=== PATIENT | female | born 1945 | race Caucasian/White ===

== ENCOUNTER 2024-05-23 06:01 | Observation (INO) | payer OTHER ==
[2024-05-20 10:55] LABS: Specific Gravity 1.014 (1.005-1.030); Sqamous Epithelial <5 /HPF (None Seen); Urine Bacteria None Seen /HPF (<20); Urine Bilirubin NEGATIVE (Negative); Urine Blood Negative (Negative); Urine Clarity Turbid (Clear); Urine Color Light-Yellow (Yellow); Urine Culture Reflex Order NOT NEEDED; Urine Glucose NEGATIVE (Negative); Urine Ketones NEGATIVE (Negative); Urine Microscopic Reflex YN ORDER UMIC; Urine Nitrite NEGATIVE (Negative); Urine Protein NEGATIVE (Negative); Urine RBC <5 /HPF (None Seen); Urine Urobilinogen Normal (Normal); Urine WBC <5 /HPF (<5)
[2024-05-20 11:05] LABS: PT Prothrombin Time 11.9 SECONDS (9.4-12.5); PTT, Activated Partial Thromb 31.9 SECONDS (24.3-36.9); Protime INR 1.06
[2024-05-20 11:07] LABS: Absolute Basophils 0.1 K/uL (0-0.5); Absolute Eosinophils 0.1 K/uL (0-0.5); Absolute Lymphocytes (CBC) 2.4 K/uL (0.7-4.9); Absolute Monocytes 0.8 K/uL (0.1-1.3); Absolute Neutrophil 4.5 K/uL (1.8-8.0); Basophils % 0.7 % (0-1.3); Eosinophils % 1.1 % (0-4.4); Hematocrit 41.8 % (36.0-45.0); Lymphocytes % 31.2 % (15.3-44.8); MCH 32.8 pg (27.0-35.0); MCHC 33.6 g/dL (32.0-36.0); MCV 97.7 fL (80-100); MPV 9.2 fL (7.6-11.3); Monocytes % 9.7 % (3.3-12.3); Neutrophils % 57.3 % (41.7-73.7); Nucleated Red Blood Cells % 0.1 % (0-0); Platelets 270 thou/uL (152-406); RBC Red Blood Cell Count 4.28 M/uL (3.86-4.86); Red Cell Distribution Width 12.8 % (12.1-15.2)
--- NOTE | 2024-05-20 16:57 | EKG ---
Test Date: 2024-05-20 Test Time: 09:59:36 Coding Analyst: PREO MEASUREMENT RESULTS: Intervals: Rate: 76 ID: [id number] QRSD: 78 QT: 372 QTc: 418 [place]: P: 39 ID: [id number] QRS: 51 T: 47 INTERPRETIVE STATEMENTS: Normal sinus rhythm Normal ECG No previous ECG available for comparison Electronically Signed On 05-20-24 16:56:33 CDT by Thaddeus Escoto
[2024-05-23] MEDS: CEFAZOLIN SODIUM 2 GM/VIAL ONE (06:12)
[2024-05-23] MEDS: Ringers Lactate 1,000 ML IV ONE ×2 (06:13→08:43)
[2024-05-23] MEDS: SCOPOLAMINE HYDROBROMIDE PATCH TD ONE ×2 (06:13→06:31)
[2024-05-23] MEDS: LIDOCAINE HCL/EPINEPHRINE 20 ML MDV ONE (06:21)
[2024-05-23] MEDS: CEFAZOLIN SODIUM 1 GM/VIAL ONE (06:21)
[2024-05-23] MEDS: VASOPRESSIN 20 UNIT/ML VIAL ONE (06:22)
[2024-05-23] MEDS: NA CHLORIDE 0.9% 100 ML ONE (06:22)
[2024-05-23] MEDS ORDERED: ONDANSETRON 4 MG/2 ML VIAL ONE (06:41)
[2024-05-23] MEDS ORDERED: FENTANYL CITR 250 MCG/5 ML ONE (06:41)
[2024-05-23] MEDS ORDERED: LIDOCAINE 1% MPF 5 ML VIAL ONE (06:41)
[2024-05-23] MEDS ORDERED: propofoL 200 MG/20 ML VIAL IV ONE (06:41)
[2024-05-23] MEDS ORDERED: dexAMETHasone 10 MG/ML VIAL ONE (06:41)
[2024-05-23] MEDS ORDERED: ROCURONIUM 50 MG/5 ML VIAL IV ONE (06:41)
[2024-05-23] MEDS: VASOPRESSIN 20 UNIT/ML VIAL IM ONE (08:15)
[2024-05-23] MEDS ORDERED: GLYCOPYRROLATE 0.2 MG/ML SYR ONE (08:50)
[2024-05-23] MEDS: HYDROMORPHONE HCL 1 MG/ML INJ ONE (10:33)
[2024-05-23] MEDS: HYDROMORPHONE HCL 1 MG/ML INJ IV ONE ×2 (10:35→11:15)
[2024-05-23] MEDS ORDERED: PROMETHAZINE INJ 25 MG/ML AMP IV PRN (11:25)
[2024-05-23 11:43] VITALS: O2SAT 98
[2024-05-23 12:24] VITALS: BMI 35.1
[2024-05-23] MEDS: CEFAZOLIN 1 GM in NA CHLORIDE 0.9% 50 ML IVPB SCH (16:52)
[2024-05-23] MEDS: ACETAMINOPHEN 500 MG TAB PO PRN (18:37)
--- NOTE | 2024-05-23 20:26 | OP ---
Date of Procedure: 05/23/2024 Surgeon: Thea Shaw MD Senior Business Intelligence Analyst: Jada Fair. Preoperative Diagnoses: Stage 3 incomplete uterovaginal prolapse, anterior wall prolapse, posterior wall defect, stress urinary incontinence. Postoperative Diagnoses: Stage 3 uterine prolapse, stage II anterior wall prolapse, posterior wall d efect (rectocele), posterior enterocele, perineocele, stress urinary incontinence. Procedures Performed: 1.Anterior repair with biologic graft augmentation. 2.Anterior approach bilateral sacrospinous ligament fixation, cervical colpopexy. 3.Posterior wall repair with posterior enterocele repair and perineocele repair. 4.Then, transobturator mid urethral sling (TVT-O) cystoscopy. Estimated Blood Loss: 100. Specimens: No specimens. Complications: No complications. Drains: Bansal catheter and vaginal packing. Condition: Stable. Findings: POP-Q 0, +2, +1, 5, then 9.5, -2, -2, -2. Cystoscopy showed strong ureteric jets from bot h ureteric orifices. No evidence of any trauma or foreign body in the bladder. On careful examinati on of the sides as well as urethra. Procedure In Detail: After informed consent was verified, patient was taken back to OR, placed in a supine fashion on the operating table, general anesthesia was given. Consent was re-verified in the preoperative area with her and sister before she was taken back and questions and answers wer e completed to her satisfaction. She was placed in a dorsal lithotomy position and vulva, vagina, and perineum, lower abdomen, the med ial thighs were all prepped with Betadine, draped in a sterile fashion. Bansal was placed to drain th e bladder. A self-retaining retractor was fixed in place and Bansal was clamped after the bladder was drained and retracted superiorly. After getting adequate retraction, then the POP-Q was done and on ce this was complete, a suture was placed on the cervix for retraction. Anterior wall in the midline was held with 2 Allis clamps, injected with dilute vasopressin 15 mL. Incision was made with a scal pel. Dissection was performed with Metzenbaum scissors opening the anterior wall all the way from th e UVJ down to the cervix and laterally taking down the bladder as well as in the midline reducing it down and then going into the paravaginal space on both sides, then entering the pararectal space to f eel the ischial spine. Then, ischial spine was followed medially and posteriorly towards the coccyx cleaning out the sacrospinous ligament, removing the bowel medially. First, on the left side, then t he white line was cleaned up by sweeping lateral and superior to the ischial spine. Then, a similar dissection was performed on the opposite side. 3 PDS sutures 2-0 were placed in the distal midline anterior wall hooking up to the normal fascia lisa t was present in the midline, which is likely the precervical fascia. Then, proximally the cervix wa s dissected and exposed and 2-0 Prolene sutures x3 were placed in the midline. First one on either s ides. All these were held on retractors. Then, the Capio device was taken and a Prolene suture plac ed in the mid ligament off the sacrospinous, first on the left side. It was at least 2 cm medial and posterior to the ischial spine. Then, a PDS suture was placed on the white line about 1 cm lateral and anterior, superior to the ischial spine on the white line. These 2 were held on retractors. Sim ilar sutures were placed on the sacrospinous on the right as well as on the white line on the right. Once they were held with clamps, then the biologic graft was fashioned. This was trimmed into an 8 x 5 x 6 cm graft. This was soaked according to package directions. 3-0 Monocryl was used to reduce the anterior wall bulge in 2 concentric pursestring sutures. Then, t he graft was placed and attached in the middle proximally with prolene sutures to the cervix and dist ally in the midline to the precervical fascia with 2-0 PDS sutures. I trimmed down another half a ce ntimeter of the graft as it appeared to be too long for the anterior wall as it was measured. Then, once these were fixed to the graft then the sacrospinous suture on each side was fixed to the graft a s well as the PDS suture to place 3 cm from the sacrospinous on the lateral aspect. Then, the suture s were tied down without any problems and without any excessive tension all the way down to the ligam ent. Then, the lateral suture was tied to the white line. There was excellent lift laterally as wel l as proximally although the orientation of the cervix was slightly tilted posterior based because of the posterior fixation on the sacrospinous. The vaginal epithelium was held with a Che clamps, tr immed less than 0.5 cm and then closed with the help of 2-0 Vicryl in a continuous running locked fas hion. There was excellent hemostasis. Mid urethral sling. 2 Allis clamps were placed on either side of the mid urethra, injected with 10 m L of dilute vasopressin. Incision was made with a 15 blade, dissecting through the epithelium, subep ithelium, and connective tissue. Tunnels were made under this towards the ipsilateral obturator spac e and once the obturator membrane was perforated, the track was expanded by opening up the scissors a nd pulling it back. Similar dissection performed on both sides and then the TVT-O kit was opened. W ing guide was placed. The needle was retraced through the guide to the obturator space and after per forating obturator membrane, the guide was removed and this was turned right hugging the inferior pub ic ramus and exiting 2 cm lateral to the groin fold slightly above the level of the external meatus i n a horizontal plane. Once the plastic sheath was held with a Che, the needle was removed. The pl astic dilator was pulled out and cut clamping the mesh and the sheath. Similar pass on the opposite side. After all these were clamped, then tensioning was performed in the middle with the help of Met zenbaum scissors and the plastic sheaths were pulled out. Mesh trimmed flush with the skin. Irrigat ion with antibiotic solution was done and the epithelium closed with a 3-0 Vicryl in a continuous run [place] locked fashion. Bansal was removed and cystoscopy was performed. Excellent jets of urine from both ureteric orifices and no evidence of any trauma on the lateral aspect of the internal meatus and the entire bladder was visualized as well as the urethra. Then, the bladder was drained, Bansal was replaced and clamped. Posterior repair and the perineum was very thin and needed a good perineal body and perineocele repai r. A lu-shaped incision was made after injecting 15 mL of dilute vasopressin. The posterior co mpartment as well as the perineum. Perineal epithelium was denuded and the connective tissue was dis sected on both sides. There was mostly scar tissue here so I had to dissect laterally enough for me to expose the connective tissue to get all the layers of the perineocele. The external anal sphincte r was brought together, the fascia off it with two 2-0 Vicryl sutures. Then, the rest of the perinea l body structures were brought together [id number] with the help of 2 rows of 2-0 Vicryl sutures. Then, posterior compartment was opened up with a triangular incision on top. The vaginal epithelium denuded. The posterior connective tissue was very poor and seemed to have poor strength, but was pre served and dissected from the vaginal epithelium. Then, the tear on the left lateral aspect was note d as well as from the posterior enterocele. There was a detachment from the top. However, the poste rior enterocele was dissected and posterior wall defect repair was done after closing the enterocele. Posterior enterocele repair: Closed with the help of 2-0 Vicryl sutures x2 from [id number] fashion . Posterior wall repair continued. The fascia was plicated, defects were repaired in a continuous runn ing 2-0 Vicryl. Once this was done, this was reattached to the perineal body with the interrupted 2- 0 Vicryl sutures x2. The vaginal epithelium was slightly trimmed for good apposition and then closed the help of 2-0 Vicryl in a continuous running locked fashion and the perineocele repair was also fi nished with this. A 3-0 Vicryl was then taken and on the perineal body subcutaneous and subcuticular sutures were done with this. There was excellent apposition, good perineal body thickness on rectov aginal exam and the posterior defect was very well corrected. Vaginal packing was placed. Instrumen t, needle, and sponge counts were correct x3 at the end the case. The patient was recovered from ane sthesia and taken to PACU in stable condition. ELENI/VAZQUEZ Voice ID: [id number] Report ID: [id number]
[2024-05-23] MEDS: MORPHINE 2 MG/ML SYR IV PRN (23:09)
[2024-05-24 08:57] VITALS: BP 137/65; TEMP 97.5
== END 2024-05-24 11:17 | disposition home or self-care (01) ==
LOC: OR 06:01 → 2ND 11:16
PROVIDERS: ADMIT Obstetrics & Gynecology; ATTEND Obstetrics & Gynecology
PROC: 0USG8ZZ Reposition Vagina, Via Natural or Artificial Opening Endoscopic (ICD-10-PCS; 2024-05-23)
PROC: 0JUC0JZ Supplement of Pelvic Region Subcutaneous Tissue and Fascia with Synthetic Substitute, Open Approach (ICD-10-PCS; 2024-05-23)
PROC: 0JQC0ZZ Repair Pelvic Region Subcutaneous Tissue and Fascia, Open Approach (ICD-10-PCS; 2024-05-23)
PROC: 0WQNXZZ Repair Female Perineum, External Approach (ICD-10-PCS; 2024-05-23)
PROC: 0TSD0ZZ Reposition Urethra, Open Approach (ICD-10-PCS; principal; 2024-05-23 07:00)
DX: N81.2 Incomplete uterovaginal prolapse (principal); N39.3 Stress incontinence (female) (male)
CPT/HCPCS: 93005; 85025; 81001; 80048; 36415; 86900; 86850; 85610; 86901; 85730; 57288; 57282; 57260; J2704; J2001; J3010; J1100; J2270; J1170 ×3; J2405; J7120 ×2; J0690 ×3